=== PATIENT | female | born 1965 | race Caucasian/White ===

== ENCOUNTER 2019-07-17 10:47 | Day surgery (SDC) | payer OTHER ==
[~2019-07-17 10:47] MED LIST: Bupivacaine 0.5% 50 ML MDV ONE; Lidocaine 1% with EPINEPHrine 1:100,000 50 ML MDV ONE; Midazolam 1 MG/ML 2 ML SDV ONE; Propofol 200 MG/20 ML SDV ONE; fentaNYL 100 MCG/2 ML SDV ONE
[2019-07-17] MEDS ORDERED: Propofol 200 MG/20 ML SDV ONE (11:00)
[2019-07-17] MEDS ORDERED: Dextrose 5%-Lactated Ringers 1,000 ML IV SCH (11:15)
[2019-07-17] MEDS ORDERED: ceFAZolin 2 GM in Premix Bag 1 BAG IV ONE (11:15)
[2019-07-17] MEDS ORDERED: Albuterol/Ipratropium 3.0-0.5 MG/3 ML Neb Soln NEB ONE (11:15)
--- NOTE | 2019-07-20 14:44 | OR ---
DATE OF PROCEDURE: 07/17/2019 SURGEON: Fidel Landa MD PREOPERATIVE DIAGNOSIS: Early invasive melanoma, right upper calf. POSTOPERATIVE DIAGNOSIS: Early invasive melanoma, right upper calf. OPERATIVE PROCEDURE: Wide reexcision of early invasive melanoma, right upper calf ([id number]). ANESTHESIA: Local plus IV sedation. INDICATION FOR PROCEDURE: A 54-year-old, who is status post excision of a changing mole in her medial right upper calf. This somewhat unexpectedly came back as an invasive melanoma. Fortunately, the depth of this was quite superficial in terms of invasion, but the depth now re-measured at 0.2 mm. This would mandate a 1 cm re-excision of margin but no lymph node sampling. This was discussed with the patient and she wishes to proceed. Potential risks including bleeding, infection, and the rare chance of recurrence were all reviewed, and the patient wishes to proceed. DETAILS OF PROCEDURE: The patient was taken to the operating room, and after some IV sedation was administered, she was positioned with the right leg slightly frog-legged. This allowed adequate exposure of the area of concern in the medial upper thigh. The area had been initially marked in the preoperative holding area and this was then re-marked to maintain a 1 cm margin from the previous excision, which would provide a satisfactory margin. Once this was marked out, the area was anesthetized with 1% lidocaine and a transversely oriented elliptical incision was made, carried down through the skin and subcutaneous tissue, and down to the level of the muscular fascia. The disk of tissue was then removed and sent for pathologic examination. Electrocautery was used to stop some minor bleeding. Incision was then closed with a deep layer of 3-0 Vicryl stitch, subdermal layer with 4-0 Vicryl stitch, and then a 5-0 Prolene skin stitch. Dressing was applied. The patient was taken to the recovery room in satisfactory condition. The lesion plus margin length in this case was the same as the incision length by definition, that being 6 cm. Fidel Landa MD /[id number]
== END 2019-07-17 14:50 | disposition home or self-care (01) ==
LOC: JP.SDS 10:47
PROVIDERS: ATTEND Surgery
DX: C43.71 Malignant melanoma of right lower limb, including hip (principal); I10 Essential (primary) hypertension; K21.9 Gastro-esophageal reflux disease without esophagitis; E11.9 Type 2 diabetes mellitus without complications; Z88.6 Allergy status to analgesic agent
CPT/HCPCS: 11606; 12032; 94640; J0690; J2250; J2704; J3010; J3490; J7042; 88305; J7620-GY